=== PATIENT | male | born 1975 | race Caucasian/White ===

== ENCOUNTER 2018-11-27 15:35 | Inpatient (IN) | payer SELFPAY ==
[2018-11-27 17:36] VITALS: BMI 22.6
--- NOTE | 2018-11-27 19:16 | HP ---
"COWS - Scale Resting Pulse: 0= [place] 80 or Below Sweatin=Flushed/Facial Moisture Restless Observation: 1= Difficult to Sit Still Pupil Size: 2= Moderately Dilated (Pupils = 5 mm) Bone or Joint Aches: 1= Mild Discomfort Runny Nose/ Eye Tearin= Runny Nose/Eyes GI Upset > 30mins: 2= Nausea/Diarrhea Tremor Observation: 2= Slight Tremor Visible Yawning Observation: 0= None Anxiety or Irritability: 1=Feels Anxious/Irritable Goose Flesh Skin: 0=Smooth Skin COWS Score: 13 CIWA Score Nausea/Vomitin Muscle Tremors: 3 Anxiety: 1-Mildly Anxious Agitation: 3 Paroxysmal Sweats: 3 Orientation: 0-Oriented Tacttile Disturbances: 0-None Auditory Disturbances: 0-None Visual Disturbances: 0-None Headache: 0-None Present CIWA-Ar Total Score: 13 - Admission Criteria [facility] Guidelines: Admission for Medically Managed Detox: Requires at least one of the followin. CIWA greater than 12 2. Seizures within the past 24 hours 3. Delirium tremens within the past 24 hours 4. Hallucinations within the past 24 hours 5. Acute intervention needed for co occurring medical disorder 6. Acute intervention needed for co occurring psychiatric disorder 7. Severe withdrawal that cannot be handled at a lower level of care (continued vomiting, continued diarrhea, abnormal vital signs) requiring intravenous medication and/or fluids 8. Patient presents the following: CIWA greater than 12, Acute intervention needed for co-occurring med or psych disorder (B/P: 168/105) Admission Criteria Met: Admission criteria met Admission [facility] Chief Complaint: Here for alcohol and heroin withdrawal. Allergies/Adverse Reactions: Allergies Allergy/AdvReac Type Severity Reaction Status Date / Time No Known Allergies Allergy Verified 11/27/18 17:48 History of Present Illness: Here for detox. This is my first detox. I was on Methadone about 2-3 years ago and wasn't ready to commit to sobriety. Has been discussing w/ and both have decided to detox at the same time. Heroin use began at age 19. Stopped restarted at about age 37. Alcohol use use began at age 19. Cocaine use began at age 38. Nicotine use began at age 15. Denies seizures, blackouts, overdoses. Hx: HTN - last took medications 08/2018. States insurance ran out and didn't renew until today. C/o chronic back and muscle spasms. Occasional anxiety/depression: Denies thoughts of harming self or others. Search Terms: Alex Arango, 1975 Search Date: 11/27/2018 06:54:49 PM The Drug Utilization Report below displays all of the controlled substance prescriptions, if any, that your patient has filled in the last twelve months. The information displayed on this report is compiled from pharmacy submissions to the Department, and accurately reflects the information as submitted by the pharmacies. This report was requested by: Viridiana Ca | Reference #: [id number] There are no results for the search terms that you entered. Exam Limitations: No Limitations - Ebola screening Have you traveled outside of the country in the last 21 days: No Have you had contact with anyone from an Ebola affected area: No Have you been sick,other than usual withdrawal symptoms: No Do you have a fever: No - Review of Systems Constitutional: Changes in sleep (Difficulty falling and staying asleep), Unintentional Wgt. Loss (r/t drug use) EENT: reports: Nose Congestion Respiratory: reports: No Symptoms reported Cardiac: reports: No Symptoms Reported GI: reports: Nausea : reports: No Symptoms Reported Musculoskeletal: reports: Joint Pain (all the time - increased w/ withdrawal), Muscle Pain (all the time - increased w/ withdrawal) Integumentary: reports: No Symptoms Reported Endocrine: reports: Increased Thirst Hematology: reports: No Symptoms Reported Psychiatric: reports: Judgement Intact, Orientated x3, Agitated, Anxious Patient History - Patient Medical History Hx Asthma: No Hx Chronic Obstructive Pulmonary Disease (COPD): No Hx Cardiac Disorders: No Hx Hypertension: Yes (non compliant with meds.) Hx Seizures: No Hx Diabetes: No Hx Gastrointestinal Disorders: No Hx Liver Disease: No Hx Genitourinary Disorders: No Hx Sexually Transmitted Disorders: No Hx Renal Disease (ESRD): No Hx Depression: No Hx Suicide Attempt: No Hx Schizophrenia: No - Patient Surgical History Past Surgical History: Yes Hx Orthopedic Surgery: Yes (R rotator cuff sx) Other Surgical History: Pt had bilateral inguinal hernia repair as an . - PPD History Previous Implant?: Yes Documented Results: Negative w/o proof Implanted On Prior R Admission?: No PPD to be Administered?: Yes - Smoking Cessation Smoking history: Current every day smoker Have you smoked in the past 12 months: Yes Aproximately how many cigarettes per day: 40 Hx Chewing Tobacco Use: No Initiated information on smoking cessation: Yes 'Breaking Loose' booklet given: 11/27/18 - Substance & Tx. History Hx Alcohol Use: Yes Hx Substance Use: Yes Substance Use Type: Alcohol, Cocaine, Heroin, Tranquilizers Hx Substance Use Treatment: Yes (Methadone program years ago) - Substances Abused Heroin Route: Inhalation Frequency: Daily Amount used: 15 bags Age of first use: 19 Date of Last Use: 11/27/18 Alcohol Route: Oral Frequency: Daily Amount used: 4-5 40 oz beers Age of first use: 19 Date of Last Use: 11/26/18 Cocaine Route: Smoking Frequency: 3-6 times per week Amount used: $20 Age of first use: 38 Date of Last Use: 11/26/18 Admission Physical Exam S - Vital Signs Vital Signs: Vital Signs - 24 hr 11/27/18 17:33 Temperature 98.1 F Pulse Rate 75 Respiratory 18 Rate Blood Pressure 165/102 H - Physical General Appearance: Yes: Nourished, Appropriately Dressed, Mild Distress, Tremorous, Sweating, Anxious HEENTM: Yes: EOMI, Hearing grossly Normal, Normal Voice, YOAN (Pupils = 5 mm), Pharynx Normal, Nasal Congestion Respiratory: Yes: Lungs Clear, Normal Breath Sounds, No Respiratory Distress Neck: Yes: No masses,lesions,Nodules, Supple Breast: Yes: Breast Exam Deferred Cardiology: Yes: Regular Rhythm, Regular Rate, S1, S2 Abdominal: Yes: Non Tender, Soft, Increased Bowel Sounds Genitourinary: Yes: Within Normal Limits Back: Yes: Normal Inspection Musculoskeletal: Yes: full range of Motion, Gait Steady Extremities: Yes: Normal Capillary Refill, Normal Range of Motion, Non-Tender, Tremors Neurological: Yes: tow picker II-XII NML intact, Fully Oriented, Alert, Motor Strength 5/5, Normal Mood/Affect, Normal Response Integumentary: Yes: Normal Color, Dry, Warm Lymphatic: Yes: Within Normal Limits - Diagnostic (1) Opioid dependence with withdrawal Current Visit: Yes Status: Acute (2) Cocaine dependence, uncomplicated Current Visit: Yes Status: Chronic (3) Alcohol dependence with uncomplicated withdrawal Current Visit: Yes Status: Acute (4) Essential (primary) hypertension Current Visit: Yes Status: Chronic (5) Nicotine dependence, uncomplicated Current Visit: Yes Status: Chronic Qualifiers: Nicotine product type: cigarettes Qualified Code(s): F17.210 - Nicotine dependence, cigarettes, uncomplicated Cleared for Admission [facility] - Detox or Rehab [facility] Level of Care: Medically Managed Detox Regimen/Protocol: Methadone/Librium S Breath Alcohol Content Breath Alcohol Content: 0 Urine Drug Screen - Results Drug Screen Negative: Yes Urine Drug Screen Results: FOREST-Cocaine, OPI-Opiates, OXY-Oxycodone"
[2018-11-27] MEDS ORDERED: MAGNESIUM CITRATE 300 ML BOTTLE PO PRN (19:53)
[2018-11-27] MEDS ORDERED: chlordiazePOXIDE HCL 25 MG CAPSULE PO ONE (19:53)
[2018-11-27] MEDS ORDERED: ACETAMINOPHEN 325 MG TABLET (FP) PO PRN (19:53)
[2018-11-27] MEDS ORDERED: METHADONE HCL 10 MG TABLET (FOR DETOX USE ONLY) PO ONE ×2 (19:53→23:00)
[2018-11-27] MEDS ORDERED: MAG HYDROX/AL HYDROX/SIMETH 30 ML UNIT-DOSE CUP PO PRN (19:53)
[2018-11-27] MEDS ORDERED: MAGNESIUM HYDROX 2400MG/30ML ORAL SUSPENSION 30 ML CUP PO PRN (19:53)
[2018-11-27] MEDS ORDERED: IBUPROFEN 400 MG TABLET (FP) PO PRN (19:53)
[2018-11-27] MEDS ORDERED: LOPERAMIDE HCL 2 MG CAPSULE PO PRN (19:53)
[2018-11-27] MEDS ORDERED: NICOTINE POLACRILEX 4 MG GUM BC PRN (19:53)
[2018-11-27] MEDS ORDERED: MENTHOL/PHENOL 1 EACH UD MM PRN (19:53)
[2018-11-27] MEDS ORDERED: P-EPHED 60MG/TRIPROLIDI 2.5MG TABLET PO PRN (19:53)
[2018-11-27] MEDS: CYCLOBENZAPRINE HCL 5 MG TABLET PO PRN (22:00)
[2018-11-27] MEDS: THIAMINE HCL 100 MG TABLET (FP) PO SCH (22:00)
[2018-11-27] MEDS: chlordiazePOXIDE HCL 25 MG CAPSULE PO SCH (22:01)
[2018-11-27] MEDS ORDERED: cloNIDine HCL 0.1 MG TABLET PO ONE (22:57)
--- NOTE | 2018-11-27 23:00 | PN ---
S Progress Note Note: Patient's blood pressure is B/P 169/97. Patient is asymptomatic Vital Signs Temperature 99.6 F 11/27/18 21:59 Pulse Rate 66 11/27/18 21:59 Respiratory Rate 18 11/27/18 21:59 Blood Pressure 169/97 11/27/18 21:59 O2 Sat by Pulse Oximetry (%) Action: Clonidine 0.1mg 1 tablet oral ordered
[2018-11-28] MEDS: chlordiazePOXIDE HCL 25 MG CAPSULE PO SCH ×4 (05:05→22:00)
--- NOTE | 2018-11-28 09:16 | PN ---
S CIWA - CIWA Score Nausea/Vomitin-Mild Nausea/No Vomiting Muscle Tremors: 3 Anxiety: 3 Agitation: 3 Paroxysmal Sweats: 1-Minimal Palms Moist Orientation: 1-Uncertain about Date Tacttile Disturbances: 1-Very Mild Itch/Numbness Auditory Disturbances: 0-None Visual Disturbances: 0-None Headache: 1-Very Mild CIWA-Ar Total Score: 14 [facility] COWS - Scale Resting Pulse: 0= [place] 80 or Below Sweatin= Chills/Flushing Restless Observation: 0= Sits Still Pupil Size: 0= Normal to Room Light Bone or Joint Aches: 2= Severe Diffuse Aches Runny Nose/ Eye Tearin= Nasal Congestion GI Upset > 30mins: 2= Nausea/Diarrhea Tremor Observation of Outstretched Hands: 2= Slight Tremor Visible Yawning Observation: 1= 1-2x During Session Anxiety or Irritability: 2=Irritable/Anxious Goose Flesh Skin: 0=Smooth Skin COWS Score: 11 S Progress Note (SOAP) Subjective: body aches joints pain tremor sweating Objective: 11/28/18 09:16 Vital Signs Temperature 98.3 F 11/28/18 09:04 Pulse Rate 67 11/28/18 09:04 Respiratory Rate 18 11/28/18 09:04 Blood Pressure 132/69 11/28/18 09:04 O2 Sat by Pulse Oximetry (%) lab pending Assessment: 11/28/18 09:16 withdrawal sx hypertension Plan: continue detox discuss alcohol misuse related hypertension
[2018-11-28] MEDS ORDERED: METHADONE HCL 10 MG TABLET (FOR DETOX USE ONLY) PO SCH (10:00)
[2018-11-28] MEDS: PRENATAL VITAMINS W/ FOLIC ACID TABLET (FP) PO SCH (10:02)
[2018-11-28] MEDS: amLODIPine BESYLATE 10 MG TABLET (FP) PO SCH (10:02)
[2018-11-28] MEDS: NICOTINE 21 MG/24 HOURS TOPICAL PATCH TD SCH (10:03)
[2018-11-28] MEDS: CYCLOBENZAPRINE HCL 5 MG TABLET PO PRN ×2 (10:07→22:00)
[2018-11-28 10:26] LABS: ALBUMIN 3.6 g/dl (3.4-5.0); ALK PHOS 98 U/L (45-117); ANION GAP 8 MMOL/L (8-16); BILIRUBIN,TOTAL 0.2 mg/dL (0.2-1); BLOOD UREA NITROGEN 25 mg/dL (7-18); CALCIUM 8.8 mg/dL (8.5-10.1); CHLORIDE 105 mmol/L (98-107); CO2 31 mmol/L (21-32); CREATININE 0.9 mg/dL (0.55-1.3); GLUCOSE,RANDOM 89 mg/dL (74-106); POTASSIUM 4.2 mmol/L (3.5-5.1); SGOT/AST 27 U/L (15-37); SGPT/ALT 56 U/L (13-61); SODIUM 143 mmol/L (136-145); TOT PROT 6.6 g/dl (6.4-8.2)
[2018-11-28 12:12] LABS: HEMATOCRIT 44.7 % (35.4-49); HEMOGLOBIN 15.4 GM/dL (11.7-16.9); MCH 31.8 pg (25.7-33.7); MCHC 34.5 g/dl (32.0-35.9); MEAN CELL VOLUME 92.2 fl (80-96); MEAN PLT VOLUME 9.2 fl (7.5-11.1); PLATELET COUNT 225 K/MM3 (134-434); RBC 4.85 M/mm3 (4.00-5.60); RDW 13.2 % (11.9-15.9); WHITE BLOOD COUNT 6.7 K/mm3 (4.0-10.0)
[2018-11-28] MEDS: chlordiazePOXIDE HCL 25 MG CAPSULE PO PRN (12:21)
--- NOTE | 2018-11-28 14:55 | EKG ---
Test Reason : Blood Pressure : / mmHG Vent. Rate : 065 BPM Atrial Rate : 065 BPM P-R Int : 174 ms QRS Dur : 100 ms QT Int : 424 ms P-R-T Axes : 037 076 057 degrees QTc Int : 440 ms NORMAL SINUS RHYTHM MODERATE VOLTAGE CRITERIA FOR LVH, MAY BE NORMAL VARIANT BORDERLINE ECG WHEN COMPARED WITH ECG OF 14-DEC-2005 11:57, QT HAS LENGTHENED Confirmed by ANY CARLOS, IVET ([id number]) on 11/28/2018 2:54:46 PM Referred By: Confirmed By:IVET AGARWAL MD
[2018-11-28] MEDS: LISINOPRIL 5 MG TABLET (FP) PO SCH (17:01)
[2018-11-28] MEDS: THIAMINE HCL 100 MG TABLET (FP) PO SCH (22:00)
[2018-11-28] MEDS: MELATONIN 5 MG TABLETS PO PRN (22:02)
[2018-11-29] MEDS: chlordiazePOXIDE HCL 25 MG CAPSULE PO PRN ×2 (03:00→13:50)
[2018-11-29] MEDS: chlordiazePOXIDE HCL 25 MG CAPSULE PO SCH ×3 (05:33→17:58)
--- NOTE | 2018-11-29 08:54 | PN ---
[facility] CIWA - CIWA Score Nausea/Vomitin-Mild Nausea/No Vomiting Muscle Tremors: 3 Anxiety: 2 Agitation: 1-Slight > Activity Paroxysmal Sweats: 1-Minimal Palms Moist Orientation: 0-Oriented Tacttile Disturbances: 0-None Auditory Disturbances: 0-None Visual Disturbances: 0-None Headache: 2-Mild CIWA-Ar Total Score: 10 [facility] COWS - Scale Resting Pulse: 0= [place] 80 or Below Sweatin= Chills/Flushing Restless Observation: 0= Sits Still Pupil Size: 0= Normal to Room Light Bone or Joint Aches: 1= Mild Discomfort Runny Nose/ Eye Tearin= Nasal Congestion GI Upset > 30mins: 1= Stomach Cramp Tremor Observation of Outstretched Hands: 1= Tremor [place], Not Seen Yawning Observation: 2= >3x During Session Anxiety or Irritability: 1=Feels Anxious/Irritable Goose Flesh Skin: 0=Smooth Skin COWS Score: 8 [facility] Progress Note (SOAP) Subjective: body aches joints pain tremor anxiety trouble sleep throughout the night Objective: 11/29/18 08:54 Vital Signs Temperature 98.8 F 11/29/18 06:29 Pulse Rate 66 11/29/18 06:29 Respiratory Rate 18 11/29/18 06:30 Blood Pressure 128/76 11/29/18 06:29 O2 Sat by Pulse Oximetry (%) Laboratory Last Values WBC 6.7 K/mm3 (4.0-10.0) 11/28/18 07:00 RBC 4.85 M/mm3 (4.00-5.60) 11/28/18 07:00 Hgb 15.4 GM/dL (11.7-16.9) 11/28/18 07:00 Hct 44.7 % (35.4-49) 11/28/18 07:00 MCV 92.2 fl (80-96) 11/28/18 07:00 MCH 31.8 pg (25.7-33.7) 11/28/18 07:00 MCHC 34.5 g/dl (32.0-35.9) 11/28/18 07:00 RDW 13.2 % (11.9-15.9) 11/28/18 07:00 Plt Count 225 K/MM3 (134-434) 11/28/18 07:00 MPV 9.2 fl (7.5-11.1) 11/28/18 07:00 Sodium 143 mmol/L (136-145) 11/28/18 07:00 Potassium 4.2 mmol/L (3.5-5.1) 11/28/18 07:00 Chloride 105 mmol/L (98-107) 11/28/18 07:00 Carbon Dioxide 31 mmol/L (21-32) 11/28/18 07:00 Anion Gap 8 MMOL/L (8-16) 11/28/18 07:00 BUN 25 mg/dL (7-18) H 11/28/18 07:00 Creatinine 0.9 mg/dL (0.55-1.3) 11/28/18 07:00 Creat Clearance w eGFR > 60 (>60) 11/28/18 07:00 Random Glucose 89 mg/dL (74-106) 11/28/18 07:00 Calcium 8.8 mg/dL (8.5-10.1) 11/28/18 07:00 Total Bilirubin 0.2 mg/dL (0.2-1) 11/28/18 07:00 AST 27 U/L (15-37) 11/28/18 07:00 ALT 56 U/L (13-61) 11/28/18 07:00 Alkaline Phosphatase 98 U/L (45-117) 11/28/18 07:00 Total Protein 6.6 g/dl (6.4-8.2) 11/28/18 07:00 Albumin 3.6 g/dl (3.4-5.0) 11/28/18 07:00 RPR Titer Nonreactive (NONREACTIVE) 11/28/18 07:00 lab noted Assessment: 11/29/18 08:54 withdrawal sx Plan: continue detox
[2018-11-29] MEDS: NICOTINE 21 MG/24 HOURS TOPICAL PATCH TD SCH (10:17)
[2018-11-29] MEDS: amLODIPine BESYLATE 10 MG TABLET (FP) PO SCH (10:19)
[2018-11-29] MEDS: PRENATAL VITAMINS W/ FOLIC ACID TABLET (FP) PO SCH (10:19)
[2018-11-29] MEDS: METHADONE HCL 5 MG TABLET (FOR DETOX USE ONLY) PO SCH (10:20)
[2018-11-29] MEDS: LISINOPRIL 5 MG TABLET (FP) PO SCH (17:00)
[2018-11-29] MEDS: CYCLOBENZAPRINE HCL 5 MG TABLET PO PRN (22:03)
[2018-11-29] MEDS: MELATONIN 5 MG TABLETS PO PRN (22:03)
[2018-11-29] MEDS: THIAMINE HCL 100 MG TABLET (FP) PO SCH (22:03)
[2018-11-29] MEDS: chlordiazePOXIDE 5 MG CAPSULE PO SCH (22:03)
[2018-11-30] MEDS: chlordiazePOXIDE 5 MG CAPSULE PO SCH ×3 (05:05→17:23)
[2018-11-30] MEDS: METHADONE HCL 5 MG TABLET (FOR DETOX USE ONLY) PO SCH (10:55)
[2018-11-30] MEDS: amLODIPine BESYLATE 10 MG TABLET (FP) PO SCH (10:55)
[2018-11-30] MEDS: PRENATAL VITAMINS W/ FOLIC ACID TABLET (FP) PO SCH (10:56)
[2018-11-30] MEDS: NICOTINE 21 MG/24 HOURS TOPICAL PATCH TD SCH (10:56)
[2018-11-30] MEDS: CYCLOBENZAPRINE HCL 5 MG TABLET PO PRN ×3 (12:45→22:11)
[2018-11-30] MEDS: chlordiazePOXIDE HCL 25 MG CAPSULE PO PRN (12:45)
[2018-11-30] MEDS ORDERED: cloNIDine HCL 0.1 MG TABLET PO ONE (15:27)
--- NOTE | 2018-11-30 15:35 | PN ---
[facility] Progress Note (SOAP) Subjective: Stomach Cramping, Nausea, "Scratchy" Throat, Body Aches, Diarrhea, Tremors, Nasal Congestion. Objective: PATIENT A & O X 3, OBSERVED AMBULATING ON UNIT. IN NO ACUTE DISTRESS. 11/30/18 15:32 Vital Signs Temperature 97.0 F L 11/30/18 13:03 Pulse Rate 73 11/30/18 13:03 Respiratory Rate 17 11/30/18 13:03 Blood Pressure 113/79 11/30/18 13:03 O2 Sat by Pulse Oximetry (%) Laboratory Tests 11/28/18 11/28/18 11/28/18 07:00 07:00 07:00 WBC 6.7 RBC 4.85 Hgb 15.4 Hct 44.7 MCV 92.2 MCH 31.8 MCHC 34.5 RDW 13.2 Plt Count 225 MPV 9.2 Sodium 143 Potassium 4.2 Chloride 105 Carbon Dioxide 31 Anion Gap 8 BUN 25 H Creatinine 0.9 Creat Clearance w eGFR > 60 Random Glucose 89 Calcium 8.8 Total Bilirubin 0.2 AST 27 ALT 56 Alkaline Phosphatase 98 Total Protein 6.6 Albumin 3.6 RPR Titer Nonreactive LABS NOTED. Assessment: 11/30/18 15:33 WITHDRAWAL SYMPTOMS. Plan: CONTINUE DETOX. INCREASE DAILY PO FLUID INTAKE. PRN FLEXERIL FOR BODY ACHES / MUSCLE SPASMS. PRN IMMODIUM FOIR DIARRHEA. PRN CEPASTAT LOZENGES FOR THROAT DISCOMFORT. PRN ACITIFED PO FOR NASAL CONGESTION. CLONIDINE, 0.1 MG PO X 1 FOR SEVERE WITHDRAWAL SYMPTOMS.
[2018-11-30] MEDS: LISINOPRIL 5 MG TABLET (FP) PO SCH (15:43)
[2018-11-30] MEDS: THIAMINE HCL 100 MG TABLET (FP) PO SCH (22:11)
[2018-11-30] MEDS: MELATONIN 5 MG TABLETS PO PRN (22:11)
[2018-11-30] MEDS: chlordiazePOXIDE HCL 10 MG CAPSULE PO SCH (22:11)
[2018-12-01] MEDS: chlordiazePOXIDE HCL 10 MG CAPSULE PO SCH ×2 (05:07→10:09)
[2018-12-01] MEDS: CYCLOBENZAPRINE HCL 5 MG TABLET PO PRN (05:08)
[2018-12-01 06:02] VITALS: TEMP 97.5
[2018-12-01 09:31] VITALS: BP 115/68; PULSE 67
[2018-12-01] MEDS ORDERED: METHADONE HCL 10 MG TABLET (FOR DETOX USE ONLY) PO SCH (10:00)
[2018-12-01] MEDS: amLODIPine BESYLATE 10 MG TABLET (FP) PO SCH (10:09)
[2018-12-01] MEDS: PRENATAL VITAMINS W/ FOLIC ACID TABLET (FP) PO SCH (10:09)
[2018-12-01] MEDS: NICOTINE 21 MG/24 HOURS TOPICAL PATCH TD SCH (10:11)
--- NOTE | 2018-12-01 14:05 | PN ---
[facility] Progress Note (SOAP) Subjective: Sweating, Anxious, Body Aches, Tremors. Objective: PATIENT A & O X 3, OBSERVED AMBULATING ON UNIT. IN NO ACUTE DISTRESS. 12/01/18 14:05 Vital Signs Temperature 97.5 F L 12/01/18 09:31 Pulse Rate 67 12/01/18 09:31 Respiratory Rate 18 12/01/18 09:31 Blood Pressure 115/68 12/01/18 09:31 O2 Sat by Pulse Oximetry (%) Laboratory Tests 11/28/18 11/28/18 11/28/18 07:00 07:00 07:00 WBC 6.7 RBC 4.85 Hgb 15.4 Hct 44.7 MCV 92.2 MCH 31.8 MCHC 34.5 RDW 13.2 Plt Count 225 MPV 9.2 Sodium 143 Potassium 4.2 Chloride 105 Carbon Dioxide 31 Anion Gap 8 BUN 25 H Creatinine 0.9 Creat Clearance w eGFR > 60 Random Glucose 89 Calcium 8.8 Total Bilirubin 0.2 AST 27 ALT 56 Alkaline Phosphatase 98 Total Protein 6.6 Albumin 3.6 RPR Titer Nonreactive LABS NOTED. Assessment: 12/01/18 14:05 WITHDRAWAL SYMPTOMS. Plan: CONTINUE DETOX. INCREASE DAILY PO FLUID INTAKE.
--- NOTE | 2018-12-01 14:10 | DS ---
[facility] Detox Discharge Summary Admission Date: 11/27/18 Discharge Date: 12/01/18 - History Present History: Alcohol Dependence, Cocaine Dependence, Opioid Dependence Additional Comments: DESPITE ENCOURAGEMENT FROM [employer] / NURSING / COUNSELING STAFF, PATIENT DOES NOT WISH TO REMAIN TO COMPLETE DETOX REGIMEN. PASTIENT STATES THAT "HE JUST DOES NOT FEEL LIKE STAYING ANYMORE." RISKS OF LEAVING DETOX UNIT AGAINST MEDICAL ADVICE AND PRIOR TO COMPLETION OF DETOX REGIMEN EXPLAINED TO PATIENT. PATIENT ADVISED TO GO IMMEDIATELY TO NEAREST ER SHOULD ANY INTOLERABLE DETOX SYMPTOMS DEVELOP AT ANY TIME. PATIENT VERBALIZED UNDERSTANDING OF ALL INFORMATION / RECOMMENDATIONS PRESENTED TO HIM PRIOR TO DEPARTURE FROM DETOX UNIT. PATIENT DECLINED OFFER OF MEDICATION PRESCRIPTION FOR HOME MEDICATION AT TIME OF DISCHARGE FROM DETOX, NOTING THAT HE CURRENTLY HAS ADEQUATE SUPPLY OF PRESCRIBED HOME MEDICATION AT HOME. PATIENT LEFT DETOX UNIT IN STABLE MEDICAL CONDITION. Pertinent Past History: HTN, Nicotine Dependence. - Physical Exam Results Vital Signs: Vital Signs Temperature 97.5 F L 12/01/18 09:31 Pulse Rate 67 12/01/18 09:31 Respiratory Rate 18 12/01/18 09:31 Blood Pressure 115/68 12/01/18 09:31 O2 Sat by Pulse Oximetry (%) Pertinent Admission Physical Exam Findings: WITHDRAWAL SYMPTOMS. Laboratory Tests 11/28/18 11/28/18 11/28/18 07:00 07:00 07:00 WBC 6.7 RBC 4.85 Hgb 15.4 Hct 44.7 MCV 92.2 MCH 31.8 MCHC 34.5 RDW 13.2 Plt Count 225 MPV 9.2 Sodium 143 Potassium 4.2 Chloride 105 Carbon Dioxide 31 Anion Gap 8 BUN 25 H Creatinine 0.9 Creat Clearance w eGFR > 60 Random Glucose 89 Calcium 8.8 Total Bilirubin 0.2 AST 27 ALT 56 Alkaline Phosphatase 98 Total Protein 6.6 Albumin 3.6 RPR Titer Nonreactive LABS NOTED. - Treatment Hospital Course: Detoxed Safely - Medication Discharge Medications: Ambulatory Orders Amlodipine Bes/Olmesartan Med [Ladarius 5-20 mg Tablet] 1 each PO DAILY 11/27/18 - Diagnosis (1) Alcohol dependence with uncomplicated withdrawal Status: Acute (2) Opioid dependence with withdrawal Status: Acute (3) Cocaine dependence, uncomplicated Status: Chronic (4) Essential (primary) hypertension Status: Chronic (5) Nicotine dependence, uncomplicated Status: Chronic Qualifiers: Nicotine product type: cigarettes Qualified Code(s): F17.210 - Nicotine dependence, cigarettes, uncomplicated - AMA Did Patient Leave Against Medical Advice: Yes (PATIENT DID NOT WISH TO REMAIN TO COMPLETE DETOX REGIMEN.)
[2018-12-02] MEDS ORDERED: METHADONE HCL 5 MG TABLET (FOR DETOX USE ONLY) PO SCH (06:00)
== END 2018-12-01 11:15 | disposition left against medical advice (07) | DRG 770 ==
LOC: YASAS 15:35 → Y3N 21:07
PROVIDERS: ADMIT Neuromusculoskeletal Medicine & OMM; ATTEND Neuromusculoskeletal Medicine & OMM
PROC: HZ2ZZZZ Detoxification Services for Substance Abuse Treatment (ICD-10-PCS; principal; 2018-11-27)
DX: F11.23 Opioid dependence with withdrawal (principal); F10.230 Alcohol dependence with withdrawal, uncomplicated; F14.20 Cocaine dependence, uncomplicated; F17.210 Nicotine dependence, cigarettes, uncomplicated; I10 Essential (primary) hypertension; Z91.14 Patient's other noncompliance with medication regimen
CPT/HCPCS: 36415; 80053; 85027; 86593; 93005; 93010; J0735

== ENCOUNTER 2019-09-07 10:27 | Inpatient (IN) | payer OTHER ==
[2019-09-07 11:48] VITALS: BMI 28.8
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
[2019-09-07] MEDS ORDERED: BISMUTH SUBSALICYLATE 524 MG/30 ML UD PO PRN (12:45)
[2019-09-07] MEDS ORDERED: METHOCARBAMOL 500 MG TABLET PO PRN (12:45)
[2019-09-07] MEDS ORDERED: MAGNESIUM CITRATE 300 ML BOTTLE PO PRN (12:45)
[2019-09-07] MEDS ORDERED: chlordiazePOXIDE HCL 25 MG CAPSULE PO PRN (12:45)
[2019-09-07] MEDS ORDERED: NICOTINE POLACRILEX 4 MG GUM BUC PRN (12:45)
[2019-09-07] MEDS ORDERED: MAG HYDROX/AL HYDROX/SIMETH 30 ML UNIT-DOSE CUP PO PRN (12:45)
[2019-09-07] MEDS ORDERED: IBUPROFEN 400 MG TABLET (FP) PO PRN (12:45)
[2019-09-07] MEDS ORDERED: MELATONIN 5 MG TABLETS PO PRN (12:45)
[2019-09-07] MEDS ORDERED: MENTHOL/PHENOL 1 EACH UD MM PRN (12:45)
[2019-09-07] MEDS ORDERED: MAGNESIUM HYDROX 2400MG/30ML ORAL SUSPENSION 30 ML CUP PO PRN (12:45)
[2019-09-07] MEDS ORDERED: cloNIDine HCL 0.1 MG TABLET PO PRN (12:45)
[2019-09-07] MEDS ORDERED: ACETAMINOPHEN 325 MG TABLET (FP) PO PRN ×2 (12:45)
[2019-09-07] MEDS ORDERED: chlordiazePOXIDE HCL 25 MG CAPSULE PO ONE (14:00)
[2019-09-07] MEDS ORDERED: METHADONE HCL 10 MG TABLET (FOR DETOX USE ONLY) PO ONE (14:00)
[2019-09-07] MEDS: amLODIPine BESYLATE 5 MG TABLET (FP) PO SCH (14:30)
[2019-09-07] MEDS: LOSARTAN POTASSIUM 25 MG TABLET PO SCH (15:18)
[2019-09-07] MEDS: chlordiazePOXIDE HCL 25 MG CAPSULE PO SCH ×2 (17:23→22:30)
[2019-09-07] MEDS: THIAMINE HCL 100 MG TABLET (FP) PO SCH (22:30)
[2019-09-08] MEDS: traZODone HCL 50 MG TABLET (FP) PO PRN (01:42)
[2019-09-08] MEDS: chlordiazePOXIDE HCL 25 MG CAPSULE PO SCH ×4 (05:39→22:21)
[2019-09-08] MEDS ORDERED: METHADONE HCL 5 MG TABLET (FOR DETOX USE ONLY) ONE (09:56)
[2019-09-08] MEDS ORDERED: METHADONE HCL 10 MG TABLET (FOR DETOX USE ONLY) ONE (09:56)
[2019-09-08] MEDS ORDERED: METHADONE (DETOX) 20 MG, METHADONE (DETOX) 5 MG PO ONE (10:00)
[2019-09-08 10:20] LABS: HEMATOCRIT 40.2 % (35.4-49); HEMOGLOBIN 13.8 GM/dL (11.7-16.9); MCHC 34.3 g/dl (32.0-35.9); MEAN CELL VOLUME 93.4 fl (80-96); MEAN PLT VOLUME 9.3 fl (7.5-11.1); PLATELET COUNT 266 K/MM3 (134-434); RDW 12.6 % (11.9-15.9); WHITE BLOOD COUNT 5.8 K/mm3 (4.0-10.0)
[2019-09-08 10:36] LABS: ALBUMIN 3.5 g/dl (3.4-5.0); BILIRUBIN,TOTAL 0.6 mg/dL (0.2-1); BLOOD UREA NITROGEN 15.5 mg/dL (7-18); CALCIUM 8.6 mg/dL (8.5-10.1); CREATININE 0.7 mg/dL (0.55-1.3); POTASSIUM 4.3 mmol/L (3.5-5.1); TOT PROT 6.4 g/dl (6.4-8.2)
[2019-09-08] MEDS: amLODIPine BESYLATE 5 MG TABLET (FP) PO SCH (10:54)
[2019-09-08] MEDS: PRENATAL VITAMINS W/ FOLIC ACID TABLET (FP) PO SCH (10:54)
[2019-09-08] MEDS: LOSARTAN POTASSIUM 25 MG TABLET PO SCH ×2 (14:30→14:38)
--- NOTE | 2019-09-08 14:31 | PN ---
[facility] CIWA - CIWA Score Nausea/Vomitin-Mild Nausea/No Vomiting Muscle Tremors: 3 Anxiety: 3 Agitation: 2 Paroxysmal Sweats: 3 Orientation: 0-Oriented Tacttile Disturbances: 0-None Auditory Disturbances: 0-None Visual Disturbances: 0-None Headache: 0-None Present CIWA-Ar Total Score: 12 S COWS - Scale Resting Pulse: 0= [place] 80 or Below Sweatin= Chills/Flushing Restless Observation: 3= Extraneous Movement Pupil Size: 0= Normal to Room Light Bone or Joint Aches: 2= Severe Diffuse Aches Runny Nose/ Eye Tearin= None GI Upset > 30mins: 2= Nausea/Diarrhea Tremor Observation of Outstretched Hands: 2= Slight Tremor Visible Yawning Observation: 0= None Anxiety or Irritability: 2=Irritable/Anxious Goose Flesh Skin: 0=Smooth Skin COWS Score: 12 [facility] Progress Note (SOAP) Subjective: Sweating, chills, tremor Objective: 09/08/19 14:28 Last Vital Signs Temp Pulse Resp BP Pulse Ox 98.2 F 72 20 116/69 09/08/19 14:10 09/08/19 14:10 09/08/19 14:10 09/08/19 14:10 Laboratory Tests 09/08/19 09/08/19 09/08/19 07:40 07:40 07:50 WBC 5.8 RBC 4.30 Hgb 13.8 Hct 40.2 MCV 93.4 MCH 32.0 MCHC 34.3 RDW 12.6 Plt Count 266 MPV 9.3 Sodium 138 Potassium 4.3 Chloride 103 Carbon Dioxide 31 Anion Gap 4 L BUN 15.5 Creatinine 0.7 Est GFR (CKD-EPI)AfAm 133.02 Est GFR (CKD-EPI)NonAf 114.77 Random Glucose 110 H Calcium 8.6 Total Bilirubin 0.6 AST 28 ALT 52 Alkaline Phosphatase 69 Total Protein 6.4 Albumin 3.5 RPR Titer Nonreactive Labs reviewed Assessment: 09/08/19 14:29 Withdrawal sxs Plan: Continue detox Encouraged PO water intake
[2019-09-08] MEDS: THIAMINE HCL 100 MG TABLET (FP) PO SCH (22:21)
[2019-09-09] MEDS: traZODone HCL 50 MG TABLET (FP) PO PRN ×2 (01:10→22:03)
[2019-09-09] MEDS: chlordiazePOXIDE HCL 25 MG CAPSULE PO SCH ×4 (05:47→22:02)
[2019-09-09] MEDS ORDERED: METHADONE HCL 10 MG TABLET (FOR DETOX USE ONLY) PO ONE (10:00)
[2019-09-09] MEDS: LOSARTAN POTASSIUM 25 MG TABLET PO SCH (10:30)
[2019-09-09] MEDS: PRENATAL VITAMINS W/ FOLIC ACID TABLET (FP) PO SCH (10:32)
[2019-09-09] MEDS: amLODIPine BESYLATE 5 MG TABLET (FP) PO SCH (10:32)
--- NOTE | 2019-09-09 12:34 | PN ---
[facility] CIWA - CIWA Score Nausea/Vomitin-Mild Nausea/No Vomiting Muscle Tremors: 2 Anxiety: 2 Agitation: 2 Paroxysmal Sweats: No Perspiration Orientation: 0-Oriented Tacttile Disturbances: 1-Very Mild Itch/Numbness Auditory Disturbances: 0-None Visual Disturbances: 0-None Headache: 2-Mild CIWA-Ar Total Score: 10 BHS COWS - Scale Resting Pulse: 0= [place] 80 or Below Sweatin= No chills or Flushing Restless Observation: 1= Difficult to Sit Still Pupil Size: 1= Pupils >than Normal Bone or Joint Aches: 1= Mild Discomfort Runny Nose/ Eye Tearin= Nasal Congestion GI Upset > 30mins: 1= Stomach Cramp Tremor Observation of Outstretched Hands: 1= Tremor [place], Not Seen Yawning Observation: 1= 1-2x During Session Anxiety or Irritability: 1=Feels Anxious/Irritable Goose Flesh Skin: 0=Smooth Skin COWS Score: 8 S Progress Note (SOAP) Subjective: alert,irritable,anixou,interrupted sleep,pin in the body and back Objective: 09/09/19 12:32 Vital Signs Temperature 98.7 F 09/09/19 09:43 Pulse Rate 67 09/09/19 09:43 Respiratory Rate 18 09/09/19 09:43 Blood Pressure 109/71 09/09/19 09:43 O2 Sat by Pulse Oximetry (%) Laboratory Last Values WBC 5.8 K/mm3 (4.0-10.0) 09/08/19 07:50 RBC 4.30 M/mm3 (4.00-5.60) 09/08/19 07:50 Hgb 13.8 GM/dL (11.7-16.9) 09/08/19 07:50 Hct 40.2 % (35.4-49) 09/08/19 07:50 MCV 93.4 fl (80-96) 09/08/19 07:50 MCH 32.0 pg (25.7-33.7) 09/08/19 07:50 MCHC 34.3 g/dl (32.0-35.9) 09/08/19 07:50 RDW 12.6 % (11.9-15.9) 09/08/19 07:50 Plt Count 266 K/MM3 (134-434) 09/08/19 07:50 MPV 9.3 fl (7.5-11.1) 09/08/19 07:50 Sodium 138 mmol/L (136-145) 09/08/19 07:40 Potassium 4.3 mmol/L (3.5-5.1) 09/08/19 07:40 Chloride 103 mmol/L (98-107) 09/08/19 07:40 Carbon Dioxide 31 mmol/L (21-32) 09/08/19 07:40 Anion Gap 4 MMOL/L (8-16) L 09/08/19 07:40 BUN 15.5 mg/dL (7-18) 09/08/19 07:40 Creatinine 0.7 mg/dL (0.55-1.3) 09/08/19 07:40 Est GFR (CKD-EPI)AfAm 133.02 09/08/19 07:40 Est GFR (CKD-EPI)NonAf 114.77 09/08/19 07:40 Random Glucose 110 mg/dL (74-106) H 09/08/19 07:40 Calcium 8.6 mg/dL (8.5-10.1) 09/08/19 07:40 Total Bilirubin 0.6 mg/dL (0.2-1) 09/08/19 07:40 AST 28 U/L (15-37) 09/08/19 07:40 ALT 52 U/L (13-61) 09/08/19 07:40 Alkaline Phosphatase 69 U/L (45-117) 09/08/19 07:40 Total Protein 6.4 g/dl (6.4-8.2) 09/08/19 07:40 Albumin 3.5 g/dl (3.4-5.0) 09/08/19 07:40 RPR Titer Nonreactive (NONREACTIVE) 09/08/19 07:40 Assessment: 09/09/19 12:33 withdrawal symptom Plan: continue detox methadone and librium regimen
[2019-09-09] MEDS: THIAMINE HCL 100 MG TABLET (FP) PO SCH (22:01)
[2019-09-10] MEDS ORDERED: chlordiazePOXIDE HCL 10 MG CAPSULE PO PRN
[2019-09-10] MEDS: chlordiazePOXIDE HCL 10 MG CAPSULE PO SCH ×2 (05:37→10:00)
[2019-09-10 06:21] VITALS: TEMP 97.7
[2019-09-10 09:32] VITALS: BP 100/59; PULSE 81
[2019-09-10] MEDS ORDERED: METHADONE HCL 5 MG TABLET (FOR DETOX USE ONLY) ONE (09:47)
[2019-09-10] MEDS ORDERED: METHADONE HCL 10 MG TABLET (FOR DETOX USE ONLY) ONE (09:47)
[2019-09-10] MEDS: LOSARTAN POTASSIUM 25 MG TABLET PO SCH (09:59)
[2019-09-10] MEDS: PRENATAL VITAMINS W/ FOLIC ACID TABLET (FP) PO SCH (10:00)
[2019-09-10] MEDS ORDERED: METHADONE (DETOX) 10 MG, METHADONE (DETOX) 5 MG PO ONE (10:00)
[2019-09-10] MEDS: amLODIPine BESYLATE 5 MG TABLET (FP) PO SCH (10:00)
--- NOTE | 2019-09-10 13:49 | PN ---
[facility] Progress Note Note: pt refused to stay to continue detox; pt states he has things to do. Pt was encouraged to stay to complete detox and prevent relapse, seizures, DT, OD and or loss however, pt chose to sign out AMA.
--- NOTE | 2019-09-10 13:49 | DS ---
[facility] Detox Discharge Summary Admission Date: 09/07/19 - History Present History: Alcohol Dependence, Cocaine Dependence - Physical Exam Results Vital Signs: Vital Signs Temperature 97.7 F 09/10/19 09:31 Pulse Rate 81 09/10/19 09:31 Respiratory Rate 18 09/10/19 09:31 Blood Pressure 100/59 L 09/10/19 09:31 O2 Sat by Pulse Oximetry (%) - Treatment Hospital Course: Discharged Condition Good, Rehab Referral Accepted - Medication Discharge Medications: Ambulatory Orders Amlodipine Bes/Olmesartan Med [Ladarius 5-20 mg Tablet] 1 each PO DAILY 11/27/18 - AMA Did Patient Leave Against Medical Advice: Yes
[2019-09-11] MEDS ORDERED: chlordiazePOXIDE HCL 10 MG CAPSULE PO SCH (05:00)
[2019-09-11] MEDS ORDERED: METHADONE HCL 10 MG TABLET (FOR DETOX USE ONLY) PO ONE (10:00)
[2019-09-12] MEDS ORDERED: chlordiazePOXIDE HCL 10 MG CAPSULE PO ONE (05:00)
[2019-09-12] MEDS ORDERED: METHADONE HCL 5 MG TABLET (FOR DETOX USE ONLY) PO ONE (06:00)
== END 2019-09-10 10:20 | disposition left against medical advice (07) | DRG 770 ==
LOC: YASAS 10:27 → Y6N 13:05
PROVIDERS: ADMIT Allergy & Immunology; ATTEND Allergy & Immunology
PROC: HZ2ZZZZ Detoxification Services for Substance Abuse Treatment (ICD-10-PCS; principal; 2019-09-07)
DX: F10.230 Alcohol dependence with withdrawal, uncomplicated (principal); F11.23 Opioid dependence with withdrawal; F13.20 Sedative, hypnotic or anxiolytic dependence, uncomplicated; F14.20 Cocaine dependence, uncomplicated; F17.210 Nicotine dependence, cigarettes, uncomplicated; B18.2 Chronic viral hepatitis C; Z89.022 Acquired absence of left finger(s)
CPT/HCPCS: 36415; 80053; 85027; 86593

== ENCOUNTER 2020-05-19 08:38 | Inpatient (IN) | payer OTHER ==
--- NOTE | 2020-05-19 08:48 | BHS.RME ---
Substance Use & Tx History - Substance Use History Alcohol Substance amount: 2 x 40 ounce Frequency of use: Daily Substance route: Oral Date of Last Use: 05/17/20 (First use age 14 y. No seizure, no blackout. 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 No OD. Has Narcan at home) Xanax Substance amount: 2 or 3 x 2 mg Frequency of use: Daily Substance route: Inhalation (ex: sniffing or snorting) Date of Last Use: 05/14/20 (First use early 20s) Nicotine Substance amount: one pack Frequency of use: Daily Substance route: Smoking Date of Last Use: 05/19/20 (Began age 14y) Physical/Psych/Mental Status - Behavior General Behavior: Increased activity (restlessness, agitation) Eye Contact: Normal - Cooperativeness Cooperativeness: Cooperative - Thinking Thought Processes: Tight Thought content: Future oriented - Physical Health Problems Is patient presently having any pain?: No Does patient presently have any injuries (include location): No Does patient currently have a fever: No COWS - Scale Resting Pulse: 1= [place] 81-100 Sweatin= Chills/Flushing Restless Observation: 1= Difficult to Sit Still Pupil Size: 0= Normal to Room Light Bone or Joint Aches: 2= Severe Diffuse Aches Runny Nose/ Eye Tearin= Runny Nose/Eyes GI Upset > 30mins: 1= Stomach Cramp Tremor Observation: 1= Tremor [place], Not Seen Yawning Observation: 0= None Anxiety or Irritability: 0= None Goose Flesh Skin: 0=Smooth Skin COWS Score: 9 CIWA Nausea/Vomitin Muscle Tremors: 2 Anxiety: 0-No Anxiety, at Ease Agitation: 0-Normal Activity Paroxysmal Sweats: 3 Orientation: 2-Disoriented Date<2 days Tacttile Disturbances: 0-None Auditory Disturbances: 0-None Visual Disturbances: 0-None Headache: 0-None Present CIWA-Ar Total Score: 9
[2020-05-19 09:10] VITALS: BMI 26.6
--- NOTE | 2020-05-19 09:51 | HP ---
COWS - Scale Resting Pulse: 1= [place] 81-100 Sweatin= Chills/Flushing Restless Observation: 1= Difficult to Sit Still Pupil Size: 0= Normal to Room Light Bone or Joint Aches: 2= Severe Diffuse Aches Runny Nose/ Eye Tearin= Runny Nose/Eyes GI Upset > 30mins: 1= Stomach Cramp Tremor Observation: 1= Tremor [place], Not Seen Yawning Observation: 0= None Anxiety or Irritability: 0= None Goose Flesh Skin: 0=Smooth Skin COWS Score: 9 CIWA Score Nausea/Vomitin Muscle Tremors: 2 Anxiety: 0-No Anxiety, at Ease Agitation: 0-Normal Activity Paroxysmal Sweats: 3 Orientation: 2-Disoriented Date<2 days Tacttile Disturbances: 0-None Auditory Disturbances: 0-None Visual Disturbances: 0-None Headache: 0-None Present CIWA-Ar Total Score: 9 - Admission Criteria OASAS Guidelines: Admission for Medically Managed Detox: Requires at least one of the followin. CIWA greater than 12 2. Seizures within the past 24 hours 3. Delirium tremens within the past 24 hours 4. Hallucinations within the past 24 hours 5. Acute intervention needed for co occurring medical disorder 6. Acute intervention needed for co occurring psychiatric disorder 7. Severe withdrawal that cannot be handled at a lower level of care (continued vomiting, continued diarrhea, abnormal vital signs) requiring intravenous medication and/or fluids 8. Admitting History and Physical - Admission Chief Complaint: Mr. Arango is a 44 yo man who presents to [facility] stating he's "trying to kick the demons". He requests a detox admission. History of Present Illness: Mr. Arango is a 44 yo man who presents to [facility] stating he's "trying to kick the demons". He was last here between Sep 07 and Sep 10, 2019. He has left AMA on multiple occasions. PMH: HTN PSH: tip of left index finger amputee Psych: no SOC: lives with Legal: none Substance Use History Alcohol Substance amount: 2 x 40 ounce Frequency of use: Daily Substance route: Oral Date of Last Use: 05/17/20 (First use age 14 y. No seizure, no blackout. 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 No OD. Has Narcan at home) Xanax Substance amount: 2 or 3 x 2 mg Frequency of use: Daily Substance route: Inhalation (ex: sniffing or snorting) Date of Last Use: 05/14/20 (First use early 20s) Nicotine Substance amount: one pack Frequency of use: Daily Substance route: Smoking Date of Last Use: 05/19/20 (Began age 14y) History Source: Patient Limitations to Obtaining History: No Limitations - Smoking History Smoking history: Current every day smoker Have you smoked in the past 12 months: Yes Aproximately how many cigarettes per day: 20 - Alcohol/Substance Use Hx Alcohol Use: No Admission ROS [facility] Allergies/Adverse Reactions: Allergies Allergy/AdvReac Type Severity Reaction Status Date / Time No Known Allergies Allergy Verified 05/19/20 09:05 Exam Limitations: No Limitations - Ebola screening Have you traveled outside of the country in the last 21 days: No Have you been sick,other than usual withdrawal symptoms: No Do you have a fever: No - Review of Systems Constitutional: No Symptoms Reported EENT: reports: Nose Congestion Respiratory: reports: No Symptoms reported Cardiac: reports: No Symptoms Reported : reports: No Symptoms Reported Musculoskeletal: reports: Muscle Pain Integumentary: reports: No Symptoms Reported Neuro: reports: No Symptoms reported Endocrine: reports: No Symptoms Reported Hematology: reports: No Symptoms Reported Psychiatric: reports: Anxious Patient History - Patient Medical History Hx Asthma: No Hx Chronic Obstructive Pulmonary Disease (COPD): No Hx Cancer: No Hx Cardiac Disorders: No Hx Hypertension: Yes Hx Hypercholesterolemia: No Hx Pacemaker: No HX Cerebrovascular Accident: No Hx Seizures: No Hx Diabetes: No Hx Gastrointestinal Disorders: No Hx Liver Disease: No Hx Genitourinary Disorders: No Hx Sexually Transmitted Disorders: No Hx Renal Disease (ESRD): No Hx Thyroid Disease: No Hx Human Immunodeficiency Virus (HIV): No Hx Hepatitis C: Yes (hep C + NO VIRAL LOAD) Hx Depression: No Hx Suicide Attempt: No Hx Bipolar Disorder: No Hx Schizophrenia: No - Patient Surgical History Past Surgical History: Yes Hx Neurologic Surgery: No Hx Cataract Extraction: No Hx Cardiac Surgery: No Hx Lung Surgery: No Hx Breast Surgery: No Hx Breast Biopsy: No Hx Abdominal Surgery: No Hx Appendectomy: No Hx Cholecystectomy: No Hx Genitourinary Surgery: No Hx Section: No Hx Orthopedic Surgery: Yes (R rotator cuff sx; tip of left index finger amputated) Other Surgical History: Pt had bilateral inguinal hernia repair as an infant. Anesthesia Reaction: No - PPD History Previous Implant?: Yes Documented Results: Negative w/proof Implanted On Prior [facility] Admission?: Yes Date: 11/29/18 - Reproductive History Patient : (n/a) - Smoking Cessation Smoking history: Current every day smoker Have you smoked in the past 12 months: Yes Aproximately how many cigarettes per day: 20 Cigars Per Day: 0 Hx Chewing Tobacco Use: No Initiated information on smoking cessation: Yes 'Breaking Loose' booklet given: 05/19/20 - Substances abused Alcohol Substance route: Oral Frequency: Daily Amount used: 2 40 oz beer Age of first use: 14 Date of last use: 05/17/20 Heroin Substance route: Inhalation Frequency: Daily Amount used: 6-7 bags Age of first use: 29 Date of last use: 05/19/20 Alprazolam (Xanax) Substance route: Inhalation Frequency: Daily Amount used: 2-3 sticks Age of first use: 19 Date of last use: 05/15/20 Admission Physical Exam S - Vital Signs Vital Signs: Vital Signs - 24 hr 05/19/20 09:06 Temperature 98.0 F Pulse Rate 98 H Respiratory 18 Rate Blood Pressure 153/99 - Physical General Appearance: Yes: No Apparent Distress, Appropriately Dressed HEENTM: Yes: EOMI, Hearing grossly Normal, Normocephalic, Normal Voice Respiratory: Yes: No Accessory Muscle Use, Wheezing Neck: Yes: Within Normal Limits Breast: Yes: Breast Exam Deferred Cardiology: Yes: Regular Rhythm, Regular Rate, S1, S2 Abdominal: Yes: Normal Bowel Sounds, Non Tender, Flat, Soft Back: Yes: Normal Inspection Musculoskeletal: Yes: Gait Steady Extremities: Yes: Normal Inspection, Non-Tender Neurological: Yes: Alert, Normal Mood/Affect Integumentary: Yes: Normal Color, Dry, Warm - Diagnostic (1) Opioid dependence with withdrawal Current Visit: Yes Status: Acute (2) Alcohol dependence with uncomplicated withdrawal Current Visit: Yes Status: Acute (3) Essential (primary) hypertension Current Visit: No Status: Chronic (4) Nicotine dependence, uncomplicated Current Visit: Yes Status: Acute Qualifiers: Nicotine product type: cigarettes Qualified Code(s): F17.210 - Nicotine dependence, cigarettes, uncomplicated (5) Sedative, hypnotic or anxiolytic dependence, uncomplicated Current Visit: No Status: Chronic Cleared for Admission S - Detox or Rehab [facility] Level of Care: Medically Managed Detox Regimen/Protocol: Methadone/Librium Breathalyzer - Breathalyzer Breathalyzer: 0 Urine Drug Screen - Test Device Lot number: [id number] Expiration date: 06/29/21 - Control Is test valid?: Yes - Results Drug screen NEGATIVE: No Urine drug screen results: FEN-Fentanyl, MOP-Opiates, BZO-Benzodiazepines Inpatient Rehab Admission - Rehab Decision to Admit Inpatient rehab admission?: No
[2020-05-19] MEDS ORDERED: MAGNESIUM CITRATE 300 ML BOTTLE PO PRN (09:54)
[2020-05-19] MEDS ORDERED: BISMUTH SUBSALICYLATE 262 MG/15 ML BTL PO PRN (09:54)
[2020-05-19] MEDS ORDERED: IBUPROFEN 400 MG TABLET (FP) PO PRN (09:54)
[2020-05-19] MEDS ORDERED: MAGNESIUM HYDROX 2400MG/30ML ORAL SUSPENSION 30 ML CUP PO PRN (09:54)
[2020-05-19] MEDS ORDERED: ACETAMINOPHEN 325 MG TABLET (FP) PO PRN ×2 (09:54)
[2020-05-19] MEDS ORDERED: cloNIDine HCL 0.1 MG TABLET PO PRN (09:54)
[2020-05-19] MEDS ORDERED: MENTHOL/PHENOL 1 EACH UD MM PRN (09:54)
[2020-05-19] MEDS ORDERED: METHADONE HCL 10 MG TABLET (FOR DETOX USE ONLY) PO ONE (09:54)
[2020-05-19] MEDS ORDERED: MAG HYDROX/AL HYDROX/SIMETH 30 ML UNIT-DOSE CUP PO PRN (09:54)
[2020-05-19] MEDS ORDERED: NICOTINE POLACRILEX 2 MG GUM BUC PRN (09:54)
[2020-05-19] MEDS ORDERED: ONDANSETRON *ODT* 4 MG TABLET SL PRN (09:54)
[2020-05-19] MEDS ORDERED: PATIENT'S OWN MEDICATION (NON-FORMULARY) (Amlodipine Bes/Olmesartan Med [Azor 5-20 Mg Tabl PO SCH (10:00)
[2020-05-19] MEDS: amLODIPine BESYLATE 5 MG TABLET (FP) PO SCH (12:07)
[2020-05-19] MEDS: METHOCARBAMOL 500 MG TABLET PO PRN (12:07)
[2020-05-19] MEDS: PRENATAL VITAMINS W/ FOLIC ACID TABLET (FP) PO SCH (12:08)
[2020-05-19] MEDS ORDERED: TUBERCULIN PPD 5 TU/0.1ML VIAL ID ONE (12:08)
[2020-05-19] MEDS: NICOTINE 21 MG/24 HOURS TOPICAL PATCH TD SCH (12:08)
[2020-05-19] MEDS: hydrOXYzine PAMOATE 25 MG CAPSULE (FP) PO SCH ×4 (12:09→22:20)
--- NOTE | 2020-05-19 13:15 | EKG ---
Test Reason : Blood Pressure : / mmHG Vent. Rate : 061 BPM Atrial Rate : 061 BPM P-R Int : 196 ms QRS Dur : 106 ms QT Int : 426 ms P-R-T Axes : 040 071 054 degrees QTc Int : 428 ms NORMAL SINUS RHYTHM MINIMAL VOLTAGE CRITERIA FOR LVH, MAY BE NORMAL VARIANT BORDERLINE ECG WHEN COMPARED WITH ECG OF 27-NOV-2018 21:43, NO SIGNIFICANT CHANGE WAS FOUND Confirmed by Ronni Duenas ([id number]) on 05/19/2020 1:14:41 PM Referred By: Confirmed By:Ronni Duenas
[2020-05-19] MEDS: VALSARTAN 160 MG TABLET (UD) PO SCH (14:12)
[2020-05-19 15:03] LABS: HEMATOCRIT 40.7 % (35.4-49); HEMOGLOBIN 13.8 GM/dL (11.7-16.9); MCH 31.3 pg (25.7-33.7); MEAN CELL VOLUME 92.2 fl (80-96); MEAN PLT VOLUME 9.7 fl (7.5-11.1); PLATELET COUNT 197 K/MM3 (134-434); RBC 4.41 M/mm3 (4.00-5.60); RDW 13.1 % (11.9-15.9)
[2020-05-19 15:16] LABS: ALBUMIN 4.1 g/dl (3.4-5.0); BILIRUBIN,TOTAL 0.7 mg/dL (0.2-1); BLOOD UREA NITROGEN 24.4 mg/dL (7-18); CALCIUM 9.2 mg/dL (8.5-10.1); POTASSIUM 3.9 mmol/L (3.5-5.1); TOT PROT 7.5 g/dl (6.4-8.2)
[2020-05-19] MEDS: MELATONIN 5 MG TABLETS PO SCH (22:20)
[2020-05-19] MEDS: THIAMINE HCL 100 MG TABLET (FP) PO SCH (22:20)
[2020-05-20] MEDS: hydrOXYzine PAMOATE 25 MG CAPSULE (FP) PO SCH ×5 (06:15→22:23)
[2020-05-20] MEDS ORDERED: METHADONE HCL 10 MG TABLET (FOR DETOX USE ONLY) ONE (08:49)
[2020-05-20] MEDS ORDERED: METHADONE HCL 5 MG TABLET (FOR DETOX USE ONLY) ONE (08:49)
[2020-05-20] MEDS ORDERED: METHADONE (DETOX) 20 MG, METHADONE (DETOX) 5 MG PO ONE (10:00)
[2020-05-20] MEDS: amLODIPine BESYLATE 5 MG TABLET (FP) PO SCH (10:17)
[2020-05-20] MEDS: PRENATAL VITAMINS W/ FOLIC ACID TABLET (FP) PO SCH (10:17)
[2020-05-20] MEDS: NICOTINE 21 MG/24 HOURS TOPICAL PATCH TD SCH (10:17)
[2020-05-20] MEDS: METHOCARBAMOL 500 MG TABLET PO PRN ×2 (10:18→22:23)
--- NOTE | 2020-05-20 11:15 | PN ---
S CIWA - CIWA Score Nausea/Vomitin-No Nausea/No Vomiting (diarrhea) Muscle Tremors: 4-Moderate,w/Arms Extend Anxiety: 4-Mod. Anxious/Guarded Agitation: 3 Paroxysmal Sweats: 1-Minimal Palms Moist Orientation: 0-Oriented Tacttile Disturbances: 0-None Auditory Disturbances: 0-None Visual Disturbances: 0-None Headache: 1-Very Mild CIWA-Ar Total Score: 13 BHS COWS - Scale Resting Pulse: 0= [place] 80 or Below Sweatin=Flushed/Facial Moisture (reports "Bed soaking wet at night") Restless Observation: 0= Sits Still Pupil Size: 2= Moderately Dilated Bone or Joint Aches: 4=Acute Joint/Muscle Pain Runny Nose/ Eye Tearin= None GI Upset > 30mins: 0= None Tremor Observation of Outstretched Hands: 2= Slight Tremor Visible Yawning Observation: 0= None Anxiety or Irritability: 2=Irritable/Anxious Goose Flesh Skin: 3=Piloerection COWS Score: 15 BHS Progress Note (SOAP) Subjective: Pt is a 44 y/o male admitted to detox for heroin withdrawal sx. Pt has a hx of heroin, alcohol and xanax use disorder. As per Dr. Piña's H/P "Will not order benzodiazepine detox at this time, has not used alcohol or a benzo in 2-5 days and CIWA is 9". Pt requesting to be re-evaluated for w/s and discomfort. pt c/o Fatigue irritabiliy sweats-bed soaking wet tremors body aches/"tightening muscles" intermittent sleep Objective: 05/20/20 11:14 Vital Signs - 24 hr 05/19/20 05/19/20 05/19/20 12:19 17:20 21:49 Temperature 97.8 F Pulse Rate 65 61 57 L Respiratory 18 18 16 Rate Blood Pressure 137/72 139/64 112/65 O2 Sat by Pulse 97 97 97 Oximetry (%) 05/20/20 05:46 Temperature 98.2 F Pulse Rate 46 L Respiratory 16 Rate Blood Pressure 120/63 O2 Sat by Pulse 97 Oximetry (%) Laboratory Tests 05/19/20 05/19/20 05/19/20 10:00 10:00 10:00 WBC 7.0 RBC 4.41 Hgb 13.8 Hct 40.7 MCV 92.2 MCH 31.3 MCHC 34.0 RDW 13.1 Plt Count 197 D MPV 9.7 Sodium 140 Potassium 3.9 Chloride 104 Carbon Dioxide 30 Anion Gap 7 L BUN 24.4 H Creatinine 1.0 Est GFR (CKD-EPI)AfAm 104.88 Est GFR (CKD-EPI)NonAf 90.49 Random Glucose 117 H Calcium 9.2 Total Bilirubin 0.7 AST 26 ALT 48 Alkaline Phosphatase 69 Total Protein 7.5 Albumin 4.1 Syphilis Serology COVID-19 ([place]) HIV Ag/Ab Combo Qual Negative 05/19/20 05/19/20 10:00 10:30 WBC RBC Hgb Hct MCV MCH MCHC RDW Plt Count MPV Sodium Potassium Chloride Carbon Dioxide Anion Gap BUN Creatinine Est GFR (CKD-EPI)AfAm Est GFR (CKD-EPI)NonAf Random Glucose Calcium Total Bilirubin AST ALT Alkaline Phosphatase Total Protein Albumin Syphilis Serology Non-reactive COVID-19 ([place]) Not detected HIV Ag/Ab Combo Qual Assessment: 05/20/20 11:14 withdrawal sx Plan: cont detox increase po fluids maintain safety monitor pt for alcohol/benzo w/s and intervene as needed. -Add Librium taper(see COWS/CIWA above)
[2020-05-20] MEDS: VALSARTAN 160 MG TABLET (UD) PO SCH (12:13)
[2020-05-20] MEDS ORDERED: chlordiazePOXIDE HCL 25 MG CAPSULE PO PRN (13:26)
[2020-05-20] MEDS: chlordiazePOXIDE HCL 25 MG CAPSULE PO SCH ×2 (18:29→22:24)
[2020-05-20] MEDS: THIAMINE HCL 100 MG TABLET (FP) PO SCH (22:23)
[2020-05-20] MEDS: MELATONIN 5 MG TABLETS PO SCH (22:23)
[2020-05-21] MEDS: chlordiazePOXIDE HCL 25 MG CAPSULE PO SCH ×4 (06:56→22:27)
[2020-05-21] MEDS: hydrOXYzine PAMOATE 25 MG CAPSULE (FP) PO SCH ×5 (06:56→22:28)
[2020-05-21] MEDS ORDERED: METHADONE HCL 10 MG TABLET (FOR DETOX USE ONLY) PO ONE (10:00)
[2020-05-21] MEDS: PRENATAL VITAMINS W/ FOLIC ACID TABLET (FP) PO SCH (10:41)
[2020-05-21] MEDS: amLODIPine BESYLATE 5 MG TABLET (FP) PO SCH (10:41)
[2020-05-21] MEDS: VALSARTAN 160 MG TABLET (UD) PO SCH (10:42)
[2020-05-21] MEDS: NICOTINE 21 MG/24 HOURS TOPICAL PATCH TD SCH (10:48)
--- NOTE | 2020-05-21 12:17 | PN ---
[facility] CIWA - CIWA Score Nausea/Vomitin-No Nausea/No Vomiting Muscle Tremors: 3 Anxiety: 4-Mod. Anxious/Guarded Agitation: 2 Paroxysmal Sweats: 1-Minimal Palms Moist Orientation: 0-Oriented Tacttile Disturbances: 0-None Auditory Disturbances: 0-None Visual Disturbances: 0-None Headache: 0-None Present CIWA-Ar Total Score: 10 S COWS - Scale Resting Pulse: 0= [place] 80 or Below Sweatin= Chills/Flushing Restless Observation: 3= Extraneous Movement Pupil Size: 0= Normal to Room Light Bone or Joint Aches: 4=Acute Joint/Muscle Pain Runny Nose/ Eye Tearin= None GI Upset > 30mins: 0= None Tremor Observation of Outstretched Hands: 0= None Yawning Observation: 0= None Anxiety or Irritability: 0= None Goose Flesh Skin: 0=Smooth Skin COWS Score: 8 S Progress Note (SOAP) Subjective: Pt c/o sweats chills nausea headache intermittent sleep Objective: 05/21/20 12:24 Vital Signs - 24 hr 05/20/20 05/20/20 05/20/20 17:37 20:22 20:40 Temperature 97.3 F L 97.5 F L Pulse Rate 56 L 56 L Respiratory 18 18 Rate Blood Pressure 114/59 L 112/60 O2 Sat by Pulse 97 97 Oximetry (%) 05/21/20 05:49 Temperature 98.0 F Pulse Rate 50 L Respiratory 18 Rate Blood Pressure 110/39 L O2 Sat by Pulse 95 Oximetry (%) Laboratory Tests 05/19/20 05/19/20 05/19/20 10:00 10:00 10:00 WBC 7.0 RBC 4.41 Hgb 13.8 Hct 40.7 MCV 92.2 MCH 31.3 MCHC 34.0 RDW 13.1 Plt Count 197 D MPV 9.7 Sodium 140 Potassium 3.9 Chloride 104 Carbon Dioxide 30 Anion Gap 7 L BUN 24.4 H Creatinine 1.0 Est GFR (CKD-EPI)AfAm 104.88 Est GFR (CKD-EPI)NonAf 90.49 Random Glucose 117 H Calcium 9.2 Total Bilirubin 0.7 AST 26 ALT 48 Alkaline Phosphatase 69 Total Protein 7.5 Albumin 4.1 Syphilis Serology COVID-19 ([place]) HIV Ag/Ab Combo Qual Negative 05/19/20 05/19/20 10:00 10:30 WBC RBC Hgb Hct MCV MCH MCHC RDW Plt Count MPV Sodium Potassium Chloride Carbon Dioxide Anion Gap BUN Creatinine Est GFR (CKD-EPI)AfAm Est GFR (CKD-EPI)NonAf Random Glucose Calcium Total Bilirubin AST ALT Alkaline Phosphatase Total Protein Albumin Syphilis Serology Non-reactive COVID-19 ([place]) Not detected HIV Ag/Ab Combo Qual covid-19 not detected alert o x 3 nad oob ambulating with steady gait Assessment: 05/21/20 12:25 withdrawal sx Plan: continue detox increase po fluids maintain safety
[2020-05-21] MEDS: THIAMINE HCL 100 MG TABLET (FP) PO SCH (22:27)
[2020-05-21] MEDS: MELATONIN 5 MG TABLETS PO SCH (22:28)
[2020-05-22] MEDS: chlordiazePOXIDE HCL 25 MG CAPSULE PO SCH ×4 (07:22→22:14)
[2020-05-22] MEDS: hydrOXYzine PAMOATE 25 MG CAPSULE (FP) PO SCH ×5 (07:22→22:14)
[2020-05-22] MEDS ORDERED: METHADONE (DETOX) 10 MG, METHADONE (DETOX) 5 MG PO ONE (10:00)
[2020-05-22] MEDS: VALSARTAN 160 MG TABLET (UD) PO SCH (10:31)
[2020-05-22] MEDS: amLODIPine BESYLATE 5 MG TABLET (FP) PO SCH (10:31)
[2020-05-22] MEDS ORDERED: METHADONE HCL 10 MG TABLET (FOR DETOX USE ONLY) ONE (10:32)
[2020-05-22] MEDS ORDERED: METHADONE HCL 5 MG TABLET (FOR DETOX USE ONLY) ONE (10:32)
[2020-05-22] MEDS: PRENATAL VITAMINS W/ FOLIC ACID TABLET (FP) PO SCH (10:33)
[2020-05-22] MEDS: NICOTINE 21 MG/24 HOURS TOPICAL PATCH TD SCH (10:33)
--- NOTE | 2020-05-22 13:44 | PN ---
[facility] CIWA - CIWA Score Nausea/Vomitin-No Nausea/No Vomiting Muscle Tremors: 1-None Visible, but [place] Anxiety: 4-Mod. Anxious/Guarded Agitation: 2 Paroxysmal Sweats: 1-Minimal Palms Moist Orientation: 0-Oriented Tacttile Disturbances: 0-None Auditory Disturbances: 0-None Visual Disturbances: 0-None Headache: 0-None Present CIWA-Ar Total Score: 8 S COWS - Scale Resting Pulse: 0= [place] 80 or Below Sweatin= Chills/Flushing Restless Observation: 0= Sits Still Pupil Size: 0= Normal to Room Light Bone or Joint Aches: 4=Acute Joint/Muscle Pain Runny Nose/ Eye Tearin= None GI Upset > 30mins: 0= None Tremor Observation of Outstretched Hands: 1= Tremor [place], Not Seen Yawning Observation: 0= None Anxiety or Irritability: 0= None Goose Flesh Skin: 0=Smooth Skin COWS Score: 6 S Progress Note (SOAP) Subjective: C/ Fatigue anxiety achy muscles/bones Objective: 05/22/20 13:46 Vital Signs - 24 hr 05/21/20 05/21/20 05/22/20 16:47 20:37 06:51 Temperature 98.0 F 97.8 F 98.2 F Pulse Rate 55 L 63 56 L Respiratory 18 18 16 Rate Blood Pressure 128/67 129/72 127/72 O2 Sat by Pulse 97 97 Oximetry (%) Laboratory Tests 05/19/20 05/19/20 05/19/20 10:00 10:00 10:00 WBC 7.0 RBC 4.41 Hgb 13.8 Hct 40.7 MCV 92.2 MCH 31.3 MCHC 34.0 RDW 13.1 Plt Count 197 D MPV 9.7 Sodium 140 Potassium 3.9 Chloride 104 Carbon Dioxide 30 Anion Gap 7 L BUN 24.4 H Creatinine 1.0 Est GFR (CKD-EPI)AfAm 104.88 Est GFR (CKD-EPI)NonAf 90.49 Random Glucose 117 H Calcium 9.2 Total Bilirubin 0.7 AST 26 ALT 48 Alkaline Phosphatase 69 Total Protein 7.5 Albumin 4.1 Syphilis Serology COVID-19 ([place]) HIV Ag/Ab Combo Qual Negative 05/19/20 05/19/20 10:00 10:30 WBC RBC Hgb Hct MCV MCH MCHC RDW Plt Count MPV Sodium Potassium Chloride Carbon Dioxide Anion Gap BUN Creatinine Est GFR (CKD-EPI)AfAm Est GFR (CKD-EPI)NonAf Random Glucose Calcium Total Bilirubin AST ALT Alkaline Phosphatase Total Protein Albumin Syphilis Serology Non-reactive COVID-19 ([place]) Not detected HIV Ag/Ab Combo Qual alert o x 3 nad oob ambulating with steady gait Assessment: 05/22/20 13:46 withdrawal sx Plan: cont detox increase po fluids maintain safety
[2020-05-22] MEDS: THIAMINE HCL 100 MG TABLET (FP) PO SCH (22:14)
[2020-05-22] MEDS: MELATONIN 5 MG TABLETS PO SCH (22:14)
[2020-05-22] MEDS: METHOCARBAMOL 500 MG TABLET PO PRN (22:15)
[2020-05-23] MEDS ORDERED: chlordiazePOXIDE HCL 10 MG CAPSULE PO PRN
[2020-05-23] MEDS: chlordiazePOXIDE HCL 10 MG CAPSULE PO SCH ×4 (06:15→22:05)
[2020-05-23] MEDS: hydrOXYzine PAMOATE 25 MG CAPSULE (FP) PO SCH ×5 (06:15→22:05)
[2020-05-23] MEDS ORDERED: METHADONE HCL 10 MG TABLET (FOR DETOX USE ONLY) PO ONE (10:00)
[2020-05-23] MEDS: amLODIPine BESYLATE 5 MG TABLET (FP) PO SCH (10:08)
[2020-05-23] MEDS: PRENATAL VITAMINS W/ FOLIC ACID TABLET (FP) PO SCH (10:08)
[2020-05-23] MEDS: VALSARTAN 160 MG TABLET (UD) PO SCH (10:08)
[2020-05-23] MEDS: NICOTINE 21 MG/24 HOURS TOPICAL PATCH TD SCH (10:08)
--- NOTE | 2020-05-23 16:52 | PN ---
[facility] CIWA - CIWA Score Nausea/Vomitin-No Nausea/No Vomiting Muscle Tremors: None Anxiety: 0-No Anxiety, at Ease Agitation: 2 Paroxysmal Sweats: No Perspiration Orientation: 0-Oriented Tacttile Disturbances: 1-Very Mild Itch/Numbness Auditory Disturbances: 0-None Visual Disturbances: 0-None Headache: 0-None Present CIWA-Ar Total Score: 3 S COWS - Scale Resting Pulse: 1= [place] 81-100 Sweatin= No chills or Flushing Restless Observation: 1= Difficult to Sit Still Pupil Size: 0= Normal to Room Light Bone or Joint Aches: 0= None Runny Nose/ Eye Tearin= None GI Upset > 30mins: 0= None Tremor Observation of Outstretched Hands: 0= None Yawning Observation: 0= None Anxiety or Irritability: 0= None Goose Flesh Skin: 0=Smooth Skin COWS Score: 2 BHS Progress Note (SOAP) Subjective: Patient denies Withdrawal / Detox symptoms at this time and reports that he feels well overall. Objective: Patient A & O X 3, Observed Ambulating on Detox Unit Unassisted. In No Acute Distress. 05/23/20 16:49 Vital Signs Temperature 98.4 F 05/23/20 09:02 Pulse Rate 98 H 05/23/20 13:25 Respiratory Rate 18 05/23/20 13:25 Blood Pressure 120/79 05/23/20 13:25 O2 Sat by Pulse Oximetry (%) 95 05/23/20 09:02 Laboratory Tests 05/19/20 05/19/20 05/19/20 10:00 10:00 10:00 WBC 7.0 RBC 4.41 Hgb 13.8 Hct 40.7 MCV 92.2 MCH 31.3 MCHC 34.0 RDW 13.1 Plt Count 197 D MPV 9.7 Sodium 140 Potassium 3.9 Chloride 104 Carbon Dioxide 30 Anion Gap 7 L BUN 24.4 H Creatinine 1.0 Est GFR (CKD-EPI)AfAm 104.88 Est GFR (CKD-EPI)NonAf 90.49 Random Glucose 117 H Calcium 9.2 Total Bilirubin 0.7 AST 26 ALT 48 Alkaline Phosphatase 69 Total Protein 7.5 Albumin 4.1 Syphilis Serology COVID-19 ([place]) HIV Ag/Ab Combo Qual Negative 05/19/20 05/19/20 10:00 10:30 WBC RBC Hgb Hct MCV MCH MCHC RDW Plt Count MPV Sodium Potassium Chloride Carbon Dioxide Anion Gap BUN Creatinine Est GFR (CKD-EPI)AfAm Est GFR (CKD-EPI)NonAf Random Glucose Calcium Total Bilirubin AST ALT Alkaline Phosphatase Total Protein Albumin Syphilis Serology Non-reactive COVID-19 ([place]) Not detected HIV Ag/Ab Combo Qual Lab Results noted. Assessment: 05/23/20 16:50 WITHDRAWAL SYMPTOMS. Plan: Continue Detox. Increase Daily Oral Water Intake. Since Patient denies current withdrawal / detox symptoms and reports that he feels well overall, at patient's request, current Detox medication regimen modified so that patient may be discharged from Detox Unit tomorrow, 05/24/2020.
[2020-05-23 21:35] VITALS: TEMP 98.2
[2020-05-23] MEDS: MELATONIN 5 MG TABLETS PO SCH (22:05)
[2020-05-23] MEDS: THIAMINE HCL 100 MG TABLET (FP) PO SCH (22:06)
[2020-05-23] MEDS: METHOCARBAMOL 500 MG TABLET PO PRN (22:07)
[2020-05-24] MEDS ORDERED: chlordiazePOXIDE HCL 10 MG CAPSULE PO ONE (05:00)
[2020-05-24] MEDS ORDERED: chlordiazePOXIDE HCL 10 MG CAPSULE PO SCH (05:00)
[2020-05-24] MEDS: hydrOXYzine PAMOATE 25 MG CAPSULE (FP) PO SCH (05:42)
[2020-05-24] MEDS ORDERED: METHADONE HCL 5 MG TABLET (FOR DETOX USE ONLY) PO ONE (06:00)
--- NOTE | 2020-05-24 06:32 | DS ---
[facility] Detox Discharge Summary Admission Date: 05/19/20 Discharge Date: 05/24/20 - History Present History: Alcohol Dependence, Opioid Dependence, Sedative Dependence Additional Comments: CLIENT IS A/O X3 SEEN AMBULATING ON UNIT W/O DIFFICULTY. DENIES COMPLAINTS. FREE FROM WITHDRAWAL SX'S. REQUESTING TO LEAVE NOW. REPORTS HE HAS A BUS TICKET FOR 8AM TO GET HIM TO HIS NEXT LEVEL OF CARE. A/O X3 NAD LUNGS- RRR MS- AMBULATING W/O DIFFICULTY, STABLE GAIT Pertinent Past History: HTN - Physical Exam Results Vital Signs: Vital Signs Temperature 98.2 F 05/23/20 20:31 Pulse Rate 79 05/23/20 20:31 Respiratory Rate 18 05/23/20 20:31 Blood Pressure 139/82 05/23/20 20:31 O2 Sat by Pulse Oximetry (%) 97 05/23/20 20:31 Pertinent Admission Physical Exam Findings: WITHDRAWAL SX'S Laboratory Tests 05/19/20 05/19/20 05/19/20 10:00 10:00 10:00 WBC 7.0 RBC 4.41 Hgb 13.8 Hct 40.7 MCV 92.2 MCH 31.3 MCHC 34.0 RDW 13.1 Plt Count 197 D MPV 9.7 Sodium 140 Potassium 3.9 Chloride 104 Carbon Dioxide 30 Anion Gap 7 L BUN 24.4 H Creatinine 1.0 Est GFR (CKD-EPI)AfAm 104.88 Est GFR (CKD-EPI)NonAf 90.49 Random Glucose 117 H Calcium 9.2 Total Bilirubin 0.7 AST 26 ALT 48 Alkaline Phosphatase 69 Total Protein 7.5 Albumin 4.1 Syphilis Serology COVID-19 ([place]) HIV Ag/Ab Combo Qual Negative 05/19/20 05/19/20 10:00 10:30 WBC RBC Hgb Hct MCV MCH MCHC RDW Plt Count MPV Sodium Potassium Chloride Carbon Dioxide Anion Gap BUN Creatinine Est GFR (CKD-EPI)AfAm Est GFR (CKD-EPI)NonAf Random Glucose Calcium Total Bilirubin AST ALT Alkaline Phosphatase Total Protein Albumin Syphilis Serology Non-reactive COVID-19 ([place]) Not detected HIV Ag/Ab Combo Qual - Treatment Hospital Course: Detox Protocol Followed, Detoxed Safely, Responded well, Discharged Condition Good - Medication Discharge Medications: Ambulatory Orders Amlodipine Bes/Olmesartan Med [Ladarius 5-20 mg Tablet] 1 each PO DAILY 11/27/18 - Diagnosis (1) Alcohol dependence with uncomplicated withdrawal Status: Resolved (2) Nicotine dependence, uncomplicated Status: Chronic Qualifiers: Nicotine product type: cigarettes Qualified Code(s): F17.210 - Nicotine dependence, cigarettes, uncomplicated (3) Opioid dependence with withdrawal Status: Resolved (4) Essential (primary) hypertension Status: Chronic (5) Sedative, hypnotic or anxiolytic dependence, uncomplicated Status: Resolved - AMA Did Patient Leave Against Medical Advice: No
[2020-05-24 06:34] VITALS: BP 125/75; PULSE 74
[2020-05-25] MEDS ORDERED: chlordiazePOXIDE HCL 10 MG CAPSULE PO ONE (05:00)
== END 2020-05-24 06:50 | disposition home or self-care (01) | DRG 773 ==
LOC: YASAS 08:38 → Y5N DETOX 11:21
PROVIDERS: ADMIT Allergy & Immunology; ATTEND Allergy & Immunology
PROC: HZ2ZZZZ Detoxification Services for Substance Abuse Treatment (ICD-10-PCS; principal; 2020-05-19)
DX: F10.230 Alcohol dependence with withdrawal, uncomplicated (principal); F11.23 Opioid dependence with withdrawal; F13.20 Sedative, hypnotic or anxiolytic dependence, uncomplicated; F17.210 Nicotine dependence, cigarettes, uncomplicated; I10 Essential (primary) hypertension; B18.2 Chronic viral hepatitis C; Z89.022 Acquired absence of left finger(s)
CPT/HCPCS: 36415; 80053; 85027; 86780; 87389; 93005; 93010; J0735; U0003